=== PATIENT | male | born 1950 | race Caucasian/White ===

== ENCOUNTER 2017-10-06 17:11 | Emergency (ER) | payer MEDICARE, BC ==
[~2017-10-06] VITALS: Ht 175.3 cm; Wt 90.7 kg
[2017-10-06] MEDS ORDERED: ESCI10 PO (18:48)
[2017-10-06] MEDS ORDERED: LISI20 PO (18:48)
[2017-10-06] MEDS ORDERED: SIMV10 PO (18:48)
[2017-10-06] MEDS ORDERED: TAMS.4ER PO (18:48)
[2017-10-06] MEDS ORDERED: HYDR1TAB94 PO (18:50)
[2017-10-06] MEDS ORDERED: XARELTO15 MG PO (19:15)
== END 2017-10-06 19:41 | disposition home or self-care (01) ==
LOC: ER 17:11 → VAS 17:11 → EDSTATUS 17:30 → ER 19:41
DX: I82.411 Acute embolism and thrombosis of right femoral vein (principal); I82.491 Acute embolism and thrombosis of other specified deep vein of right lower extremity; Z79.899 Other long term (current) drug therapy; Z87.891 Personal history of nicotine dependence
CPT/HCPCS: 93971; 99284

== ENCOUNTER → 2019-06-28 | Outpatient (CLI) | payer MEDICARE, BC ==
[~2019-06-28] MED LIST: ESCI10 PO; HYDR1TAB94 PO; LISI20 PO; SIMV10 PO; TAMS.4ER PO; XARELTO15 MG PO
[2019-06-28 17:11] LABS: U Amphetamine Screen Not Detected; U Barbituate Screen Not Detected; U Benzodiazapine Screen Not Detected; U Buprenorphine Screen Not Detected; U Cannabinoids Screen Not Detected; U Cocaine Screen Not Detected; U Methadone Screen Not Detected; U Methamphetamine Screen Not Detected; U Opiates Screen DETECTED; U Oxycodone Screen Not Detected; U Phencyclidine Screen Not Detected; U Propoxyphene Screen Not Detected
== END | disposition home or self-care (01) ==
LOC: OLS 15:00 → LAB 15:00 → LAB SHORT 15:00
PROVIDERS: Internal Medicine
DX: Z51.81 Encounter for therapeutic drug level monitoring (principal); Z79.891 Long term (current) use of opiate analgesic
CPT/HCPCS: G0480

== ENCOUNTER → 2019-08-12 | Outpatient (CLI) | payer MEDICARE, BC ==
[2019-08-16 13:07] LABS: M-SPIKE, % Not Observed % (Not Observed); PROTEIN,TOTAL,URINE 4.9 mg/dL (Not Estab.)
== END | disposition home or self-care (01) ==
LOC: OLS 12:22 → LAB SHORT 12:22 → LAB FUT 08-03 13:10
PROVIDERS: Internal Medicine
DX: Z00.01 Encounter for general adult medical examination with abnormal findings (principal)
CPT/HCPCS: 81050; 84166; 86335

== ENCOUNTER → 2021-12-27 | Outpatient (CLI) | payer MEDICARE, BC ==
[2021-12-27 11:23] LABS: U Amphetamine Screen Not Detected; U Barbituate Screen Not Detected; U Benzodiazapine Screen Not Detected; U Buprenorphine Screen Not Detected; U Cannabinoids Screen Not Detected; U Cocaine Screen Not Detected; U Methadone Screen Not Detected; U Methamphetamine Screen Not Detected; U Opiates Screen DETECTED; U Oxycodone Screen Not Detected; U Phencyclidine Screen Not Detected; U Propoxyphene Screen Not Detected
== END | disposition home or self-care (01) ==
LOC: LAB SHORT 10:19 → LAB FUT 12-26 15:45
PROVIDERS: Internal Medicine
DX: Z51.81 Encounter for therapeutic drug level monitoring (principal); Z79.891 Long term (current) use of opiate analgesic